=== PATIENT | male | born 1965 | race Caucasian/White ===

== ENCOUNTER 2018-08-28 03:02 | Emergency (ER) | payer OTHER ==
[~2018-08-28] VITALS: Ht 165.1 cm; Wt 65.0 kg
[2018-08-28] MEDS ORDERED: LORTAB 1010 MG PO (03:16)
[2018-08-28] MEDS ORDERED: FLOXIN OTIC0.3 % AD (03:16)
[2018-08-28] MEDS ORDERED: AMOXICILLIN875 MG PO (03:16)
[2018-08-28] MEDS ORDERED: CYCLOBENZAPR10 MG PO (03:25)
[2018-08-28] MEDS ORDERED: LISINOP/HCTZ1 TAB PO (03:26)
[2018-08-28] MEDS ORDERED: PROAIR HFA108 MCG/AC IN (03:27)
[2018-08-28] MEDS ORDERED: ADVAIR DISK1 IN (03:28)
[2018-08-28 04:39] VITALS: BP 144/95
== END 2018-08-28 04:39 | disposition home or self-care (01) ==
LOC: ED 03:02
DX: H66.91 Otitis media, unspecified, right ear (principal); I10 Essential (primary) hypertension; J44.9 Chronic obstructive pulmonary disease, unspecified

== ENCOUNTER 2018-10-09 17:43 | Emergency (ER) | payer OTHER ==
[~2018-10-09] VITALS: Ht 165.1 cm; Wt 65.7 kg
[~2018-10-09 17:43] MED LIST: ADVAIR DISK1 IN; AMOXICILLIN875 MG PO; CYCLOBENZAPR10 MG PO; FLOXIN OTIC0.3 % AD; LISINOP/HCTZ1 TAB PO; LORTAB 1010 MG PO; PROAIR HFA108 MCG/AC IN
[2018-10-09 18:08] VITALS: BP 116/77
[2018-10-09] MEDS ORDERED: PERMETHRIN5 % EX (18:51)
== END 2018-10-09 19:00 | disposition home or self-care (01) ==
LOC: ED 17:43
DX: B86 Scabies (principal); I10 Essential (primary) hypertension; J44.9 Chronic obstructive pulmonary disease, unspecified; F17.200 Nicotine dependence, unspecified, uncomplicated

== ENCOUNTER 2021-06-03 11:34 | Emergency (ER) | payer OTHER ==
[~2021-06-03] VITALS: Ht 165.1 cm; Wt 75.0 kg
[~2021-06-03 11:34] MED LIST changes: +PERMETHRIN5 % EX
[2021-06-03 12:46] LABS: HEMATOCRIT 45.4 % (39.0-50.0); IMMATURE GRANULOCYTES 0.2 % (0.0-5.0); MEAN CELL VOLUME 88.7 fL CALC (80.0-100.0); MEAN CORPUSCULAR HGB 29.5 pG CALC (26.0-32.0); MEAN CORPUSCULAR HGB CONC 33.3 g/dL CAL (32.0-36.0); NEUT# 3.21 thou/uL (1.82-7.42); RED BLOOD COUNT 5.12 mill/uL (4.70-6.10); RED CELL DISTRI WIDTH 12.9 % (11.5-15.5)
[2021-06-03 12:49] LABS: URINE BILIRUBIN - DIPSTICK NEGATIVE (NEGATIVE); URINE BLOOD DIPSTICK NEGATIVE (NEGATIVE); URINE CLARITY CLEAR; URINE COLOR YELLOW; URINE GLUCOSE - DIPSTICK NEGATIVE (NEGATIVE); URINE KETONE NEGATIVE (NEGATIVE); URINE LEUK ESTERASE NEGATIVE (Negative); URINE NITRITE - DIPSTICK NEGATIVE (Negative); URINE PROTEIN - DIPSTICK NEGATIVE (NEG-TRACE); URINE SPECIFIC GRAVITY 1.015
[2021-06-03 13:02] LABS: ALKALINE PHOSPHATASE 70 u/l (38-126); BUN 13 mg/dL (9-20); BUN/CREATININE RATIO 11 (12-20 (CALC)); CREATININE 1.1 mg/dL (0.7-1.3); GFR > 60 ML/MIN (>=60 (CALC)); GFR FOR AFR.AMER. > 60 ML/MIN (>=60 (CALC)); POTASSIUM 3.3 mmol/l (3.5-5.1); SGOT/AST 41 u/l (17-59); TOTAL PROTEIN 7.5 g/dL (6.3-8.2)
[2021-06-03 13:03] LABS: ANION GAP 14 (6-22 (CALC)); BILIRUBIN, TOTAL 0.5 mg/dL (0.0-1.4); CARBON DIOXIDE 24 mmol/l (22-30); CHLORIDE 94 mmol/l (95-108); SODIUM 129 mmol/l (137-146)
[2021-06-03 13:17] LABS: HEMOGLOBIN 15.1 g/dl (14.0-18.0)
[2021-06-03 14:50] VITALS: BP 115/74
== END 2021-06-03 15:25 | disposition home or self-care (01) ==
LOC: ED 11:34
DX: B34.9 Viral infection, unspecified (principal); E87.1 Hypo-osmolality and hyponatremia; F15.10 Other stimulant abuse, uncomplicated; F17.200 Nicotine dependence, unspecified, uncomplicated; Z20.822 Contact with and (suspected) exposure to COVID-19